=== PATIENT | male | born 1990 | race Caucasian/White ===

== ENCOUNTER 2018-09-12 06:05 | Emergency (ER) | payer BC ==
[~2018-09-12] VITALS: Ht 175.3 cm; Wt 147.9 kg
[2018-09-12 06:10] VITALS: BP 132/73
--- NOTE | 2018-09-12 06:12 | NUR ---
PT TAKEN TO BED 11
--- NOTE | 2018-09-12 06:15 | NUR ---
28 Y/O M PRESENTED TO ED WITH C/O SORE THROAT X4 DAYS. AAOX4. 8/10 PAIN ONLY WHEN SWALLOWING, PAIN RADIATES TO R EAR. PT STATED " TOOK AMOXICILLIN THAT I HAD AT HOME FOR A FEW DAYS BUT IT DIDNT HELP. IT HURTS TO SWALLOW. I'VE BEEN SPITTING UP BROWN PHELGM." EDEMA AND SMALL WHITE PATCHES NOTED TO TONSILS. SUBMANDIBULAR LYMPH NODES SWOLLEN. ERMD NOTIFIED. WILL CONTINUE TO MONITOR.
--- NOTE | 2018-09-12 07:10 | NUR ---
REPORT GIVEN TO STEPHANIE CRAWFORD. TRANSFER OF CARE AT THIS TIME.
--- NOTE | 2018-09-12 07:24 | NUR ---
DR. BERTRAND AT BEDSIDE TO EVALUATE PT.
[2018-09-12 07:39] VITALS: BP 122/73
--- NOTE | 2018-09-12 07:42 | NUR ---
Patient discharged with v/s stable. Written and verbal after care instructions given and explained. Patient alert, oriented and verbalized understanding of instructions. Ambulatory with steady gait. All questions addressed prior to discharge. ID band removed. Patient advised to follow up with PMD. Rx of NAPROSYN 500 MG given. Patient educated on indication of medication including possible reaction and side effects. Opportunity to ask questions provided and answered.
--- NOTE | 2018-09-12 07:45 | NUR ---
Chart checked and completed. The patient's care was reviewed and supervised by Bettina Murillo RN.
== END 2018-09-12 07:42 | disposition home or self-care (01) ==
LOC: MED 06:05
DX: J02.8 Acute pharyngitis due to other specified organisms (principal); B97.89 Other viral agents as the cause of diseases classified elsewhere; G44.209 Tension-type headache, unspecified, not intractable; R03.0 Elevated blood-pressure reading, without diagnosis of hypertension; F17.200 Nicotine dependence, unspecified, uncomplicated
CPT/HCPCS: 87081; 99283

== ENCOUNTER 2019-03-08 22:07 | Emergency (ER) | payer BC | END 2019-03-09 02:15 | disposition home or self-care (01) | LOC: MED 22:10 | DX: F41.9 Anxiety disorder, unspecified (principal) | CPT/HCPCS: 99284 ==

== ENCOUNTER 2020-10-19 14:45 | Emergency (ER) | payer BC, MEDICAID ==
[~2020-10-19] VITALS: Ht 180.3 cm; Wt 152.4 kg
[2020-10-19 14:58] VITALS: BP 134/86
--- NOTE | 2020-10-19 15:18 | NUR ---
EMT AT BEDSIDE FOR EKG
--- NOTE | 2020-10-19 15:20 | NUR ---
ASHLY ORDOÑEZ AT BEDSIDE EVALUATING PT
--- NOTE | 2020-10-19 15:21 | NUR ---
30 Y/O MALE BIB SELF FROM HOME, C/O PRODUCTIVE COUGH AND CHEST PAIN THAT HE RATES 4/10 AND DESCRIBES "POKING"/NUMBNESS SENSATION. PT STATES THAT WHEN HE TAKES A DEEP BREATH HE HAS NAUSEA BUT DENIES VOMITING. DENIES NAUSEA AT THIS MOMENT. PT STATES THAT THE PAIN STARTED X3-4 DAYS AGO AND STATED THAT THE PAIN IS BETTER THAN A FEW DAYS AGO. PT STATES HE MENTIONED AT WORK THAT HE WAS HAVING CP AND WAS TOLD TO COME HERE. DENIES FEVER/CHILLS. PT STATES THAT IS DAUGHTER WAS SICK AT HOME WITH SIMILAR S/S. PT A/O X4 WITH EVEN AND UNLABORED RESPIRATIONS. PT LAYING IN BED WITH BED IN LOWEST POSITION, BRAKES LOCKED, X1 SIDERAIL UP. PMH: ASTHMA (DOES NOT USE INHALER) NKA MED: DENIES
[2020-10-19] MEDS ORDERED: ALBU0.0912 IH (16:40)
[2020-10-19] MEDS ORDERED: IBUP-2213 PO (16:40)
[2020-10-19] MEDS ORDERED: PROM118S5 PO (16:40)
[2020-10-19 16:49] VITALS: BP 134/86
--- NOTE | 2020-10-19 16:50 | NUR ---
Patient discharged with v/s stable. Written and verbal after care instructions given and explained. Patient alert, oriented and verbalized understanding of instructions. Ambulatory with steady gait. All questions addressed prior to discharge. ID band removed. Patient advised to follow up with PMD. Rx of ALBUTEROL, IBUPROFEN, PROMETHAZINE/DEXTROMETHORPHAN given. Patient educated on indication of medication including possible reaction and side effects. Opportunity to ask questions provided and answered.
== END 2020-10-19 16:50 | disposition home or self-care (01) ==
LOC: MED 14:45
DX: J06.9 Acute upper respiratory infection, unspecified (principal); J45.909 Unspecified asthma, uncomplicated
CPT/HCPCS: 71045; 93005; 99283

== ENCOUNTER 2021-08-14 14:08 | Emergency (ER) | payer MEDICAID ==
[~2021-08-14] VITALS: Ht 177.8 cm; Wt 147.0 kg
[~2021-08-14 14:08] MED LIST: ALBU0.0912 IH; IBUP-2213 PO; PROM118S5 PO
[2021-08-14 14:22] VITALS: BP 145/89
[2021-08-14] MEDS ORDERED: IBUPROFEN 800 MG TAB PO ONE (14:35)
--- NOTE | 2021-08-14 14:40 | NUR ---
Radiology at bedside.
--- NOTE | 2021-08-14 15:17 | NUR ---
31 y/o male c/o right ankle pain atfer stepping wrong. Patient was at work and is unable to bear weight on right leg. Pain is 9/10 and stays in right ankle area. Patient states he took Tylenol earlier for pain. Medical History: denies NKDA
[2021-08-14] MEDS ORDERED: IBUP-2218 PO (15:27)
--- NOTE | 2021-08-14 15:50 | NUR ---
aircast applied to R ankle, verified by Jose Barrios. Crutch training complete, return demonstration provided by pt.
--- NOTE | 2021-08-14 15:51 | NUR ---
Patient discharged with v/s stable. Written and verbal after care instructions given. Patient alert, oriented and verbalized understanding of instructions. Ambulatory with crutches. All questions addressed prior to discharge. ID band removed. Patient advised to follow up with PMD. Rx of ibuprofen given. Opportunity to ask questions provided and answered. Work note handed to patient.
--- NOTE | 2021-08-14 15:52 | NUR ---
The patient's care was reviewed and supervised by Viktoria Norton RN.
== END 2021-08-14 15:51 | disposition home or self-care (01) ==
LOC: MED 14:08
DX: M25.571 Pain in right ankle and joints of right foot (principal)
CPT/HCPCS: 73610; 73630; 99284

== ENCOUNTER 2022-01-15 06:15 | Emergency (ER) | payer OTHER, MEDICAID ==
[~2022-01-15] VITALS: Ht 180.3 cm; Wt 160.1 kg
[~2022-01-15 06:15] MED LIST changes: +IBUP-2218 PO
[2022-01-15 06:47] VITALS: BP 121/91
--- NOTE | 2022-01-15 06:53 | NUR ---
PT AMBULATED TO ED 11, REPORT GIVEN TO CAROLIN BROWN
[2022-01-15] MEDS ORDERED: NACL 0.9% 1,000 ML IV ONE (07:05)
[2022-01-15] MEDS ORDERED: DEXAMETHASONE 10 MG/ML VIAL IVP ONE (07:05)
[2022-01-15] MEDS ORDERED: KETOROLAC 15 MG/ML VIAL IVP ONE (07:05)
--- NOTE | 2022-01-15 07:17 | NUR ---
REPORT RECEIVED FROM CAROLIN BROWN, TRANSFER OF CARE AT THIS TIME, RECEIVED PT IN BED AWAKE AND ALERT, RESPIRATIONS EVEN AND UNLABORED, C/O SORE THROAT, DENIES COUGH/SOB
--- NOTE | 2022-01-15 07:20 | NUR ---
31 Y/O MALE BIB SELF C/O SORE THROAT 5DAYS, PER PT THROAT FEELS "SWOLLEN", DENIES COUGH/SOB. STATES THAT HE TOOK MUCINEX WITH MINIMAL RELIEF NKA PMH: ASTHMA
--- NOTE | 2022-01-15 07:29 | NUR ---
Change of shift report given to Kristy Paul RN. Kristy Paul RN verbalized understanding of report, no further questions.
[2022-01-15] MEDS ORDERED: AMOX-1230 PO (08:43)
--- NOTE | 2022-01-15 08:43 | NUR ---
PT HR FROM 113 IN TRIAGE NOW 90
[2022-01-15] MEDS ORDERED: IBUP-2213 PO (08:44)
[2022-01-15 08:56] VITALS: BP 117/73
--- NOTE | 2022-01-15 08:56 | NUR ---
Patient discharged with v/s stable. Written and verbal after care instructions ABOUT TONSILLITIS given and explained. Patient alert, oriented and verbalized understanding of instructions. Ambulatory with steady gait. All questions addressed prior to discharge. ID band removed. Patient advised to follow up with PMD. Rx of AMOX-CLAV [id number], MOTRIN given. Patient educated on indication of medication including possible reaction and side effects. Opportunity to ask questions provided and answered.
== END 2022-01-15 08:56 | disposition home or self-care (01) ==
LOC: MED 06:15
DX: J02.9 Acute pharyngitis, unspecified (principal); Z20.822 Contact with and (suspected) exposure to COVID-19; J45.909 Unspecified asthma, uncomplicated; Z79.899 Other long term (current) drug therapy
CPT/HCPCS: 71045; 87081; 87426; 87804; 96361; 96374; 96375; 99283; J1100; J1885; J7030; Q0092

== ENCOUNTER 2023-03-07 22:01 | Emergency (ER) | payer OTHER, MEDICAID ==
[~2023-03-07] VITALS: Ht 180.3 cm; Wt 119.7 kg
[~2023-03-07 22:01] MED LIST changes: +AMOX-1230 PO
[2023-03-07 22:25] VITALS: BP 133/100; PULSE 123; RESP 24; TEMP 102.3; O2SAT 98
[2023-03-07 23:05] LABS: FLU A ANTIGEN negative (NEGATIVE); FLU B ANTIGEN NEGATIVE (NEGATIVE)
[2023-03-07] MEDS ORDERED: ACETAMINOPHEN EXTRA STRENGTH 500 MG TAB PO ONE (23:30)
[2023-03-07] MEDS ORDERED: PROM118S5 PO ×2 (23:43→23:44)
[2023-03-07] MEDS ORDERED: ACET-10509 PO ×2 (23:43→23:44)
[2023-03-07] MEDS ORDERED: BENZ-300 PO ×2 (23:43→23:44)
[2023-03-07] MEDS ORDERED: IBUP-2218 PO ×2 (23:43→23:44)
== END 2023-03-08 00:27 | disposition home or self-care (01) ==
LOC: MED 22:01
DX: B34.9 Viral infection, unspecified (principal); Z20.822 Contact with and (suspected) exposure to COVID-19; J45.909 Unspecified asthma, uncomplicated; Z79.899 Other long term (current) drug therapy; Z79.1 Long term (current) use of non-steroidal anti-inflammatories (NSAID); Z79.2 Long term (current) use of antibiotics
CPT/HCPCS: 99282

== ENCOUNTER 2023-07-25 08:39 | Emergency (ER) | payer OTHER, MEDICAID ==
[~2023-07-25] VITALS: Ht 177.8 cm; Wt 162.1 kg
[~2023-07-25 08:39] MED LIST changes: +ACET-10509 PO; +BENZ-300 PO
[2023-07-25 09:02] VITALS: BP 124/82; PULSE 83; RESP 20; TEMP 98.4; O2SAT 96
[2023-07-25] MEDS: IBUPROFEN 800 MG TAB PO ONE (09:46)
[2023-07-25] MEDS ORDERED: ACET-10509 PO (10:49)
[2023-07-25] MEDS ORDERED: IBUP-2218 PO (10:49)
== END 2023-07-25 11:02 | disposition home or self-care (01) ==
LOC: MED 08:39
DX: S92.352A Displaced fracture of fifth metatarsal bone, left foot, initial encounter for closed fracture (principal); R03.0 Elevated blood-pressure reading, without diagnosis of hypertension; J45.909 Unspecified asthma, uncomplicated; Z79.1 Long term (current) use of non-steroidal anti-inflammatories (NSAID); Z79.899 Other long term (current) drug therapy; W19.XXXA Unspecified fall, initial encounter; Y93.89 Activity, other specified; Y92.89 Other specified places as the place of occurrence of the external cause; Y99.8 Other external cause status
CPT/HCPCS: 29505; 73610; 73630; 99283